=== PATIENT | male | born 1960 | race Caucasian/White ===

== ENCOUNTER 2017-01-06 18:35 | Emergency (ER) | payer OTHER ==
[~2017-01-06] VITALS: Ht 182.9 cm; Wt 85.0 kg
[~2017-01-06 18:35] MED LIST: TRAZ100T4 PO; TRAZ50TA4 PO; VENL-39 PO; VENL75XR PO
[2017-01-06 19:44] VITALS: BP 115/78; PULSE 111; RESP 18; TEMP 97.8; O2SAT 97
[2017-01-06 20:25] LABS: AUTOMATED NEUTROPHIL # 10.4 TH/MM3 (1.8-7.7); BASOPHIL # 0.1 TH/MM3 (0-0.2); BASOPHIL % 0.8 % (0.0-2.0); EOSINOPHIL % 0.2 % (0.0-4.0); HEMATOCRIT 47.4 % (39.0-51.0); HEMO FLAGS DIFF FINAL; LYMPH % 14.1 % (9.0-44.0); LYMPHOCYTE # 1.9 TH/MM3 (1.0-4.8); MEAN CELL VOLUME 95.5 FL (80.0-100.0); MEAN CORPUSCULAR HGB CONC 33.5 % (32.0-36.0); MONO % 5.9 % (0.0-8.0); PLATELET COUNT 316 TH/MM3 (150-450); RED BLOOD COUNT 4.97 MIL/MM3 (4.50-5.90); WHITE BLOOD COUNT 13.1 TH/MM3 (4.0-11.0)
[2017-01-06 20:39] LABS: ALT (GPT) 56 U/L (12-78); ANION GAP 9 MEQ/L (5-15); AST (GOT) 51 U/L (15-37); BICARBONATE 25.1 MEQ/L (21.0-32.0); BLOOD UREA NITROGEN 12 MG/DL (7-18); CHLORIDE 107 MEQ/L (98-107); GLOMERULAR FILTRATION RATE 45 ML/MIN (>89); POTASSIUM 4.2 MEQ/L (3.5-5.1); SODIUM (NA) 141 MEQ/L (136-145)
[2017-01-06 20:42] LABS: ALKALINE PHOSPHATASE 55 U/L (45-117); TOTAL BILIRUBIN ADULT 0.6 MG/DL (0.2-1.0)
[2017-01-06 20:55] LABS: ACETAMINOPHEN LESS THAN 2.0 MCG/ML (10.0-30.0)
[2017-01-06 21:13] VITALS: BP 137/86; PULSE 86; RESP 18; TEMP 97.7; O2SAT 97
[2017-01-06 21:47] LABS: AMPHETAMINE, URINE NEG (NEG); BARBITURATES, URINE NEG (NEG); COCAINE, URINE POS (NEG)
--- NOTE | 2017-01-06 22:51 | PD ---
HPI Chief Complaint: Psychiatric Symptoms Time Seen by Provider: 22:49 Travel History International Travel<30 days: No Contact w/Intl Traveler<30days: No Traveled to known affect area: No History of Present Illness HPI 56-year-old male presents to the emergency department under Bhandari act for psychiatric evaluation. Patient states he has history of depression and alcoholism. He has not been taking his medication. He has been increasingly depressed with suicidal thoughts. Denies any active attempt or plan. Abrasion denies any acute medical needs. He has no other symptoms reported. PFSH Past Medical History Blood Disorders: No Bipolar Disorder: Yes Depression: Yes Cancer: No Cardiovascular Problems: No Diabetes: No Diminished Hearing: No Endocrine: No Gastrointestinal Disorders: No Genitourinary: No Headaches: Yes Immune Disorder: No Musculoskeletal: No Neurologic: No Psychiatric: Yes (Depression, Bipolar Disorder) Reproductive: No Respiratory: No Immunizations Current: Yes Pancreatitis: Yes Schizophrenia: Yes (pt with hx) Seizures: No Past Surgical History Eye Surgery: Yes Other Surgery: No Social History Alcohol Use: Yes (20 BEERS/DAY.. DRANK 8 BEERS TONIGHT) Tobacco Use: Yes (1 PACK PER DAY) Substance Use: Yes Allergies-Medications (Allergen,Severity, Reaction): Coded Allergies: Milk (Verified Adverse Reaction, Intermediate, NAUSEA AND VOMITING, ) Reported Meds & Prescriptions Reported Meds & Active Scripts Active Effexor-Xr (Venlafaxine HCl) 75 Mg Caper 75 Mg PO DAILY 30 Days Desyrel 100 Mg Tab (Trazodone Hcl) 100 Mg Tab 100 Mg PO HS 30 Days Reported Trazodone Hcl (Trazodone HCl) 50 Mg Tab 50 Mg PO HS Venlafaxine Hcl Er 75 Mg Tab (Venlafaxine HCl) 75 Mg Lisandra 75 Mg PO BID Review of Systems Except as stated in HPI: all other systems reviewed are Neg Physical Exam Narrative GENERAL: Well-nourished male patient in no acute distress SKIN: Focused skin assessment warm/dry. HEAD: Atraumatic. Normocephalic. EYES: Pupils equal and round. No scleral icterus. No injection or drainage. ENT: No nasal bleeding or discharge. Mucous membranes pink and moist. NECK: Trachea midline. No JVD. CARDIOVASCULAR: Regular rate and rhythm. No murmur appreciated. RESPIRATORY: No accessory muscle use. Clear to auscultation. Breath sounds equal bilaterally. GASTROINTESTINAL: Abdomen soft, non-tender, nondistended. Hepatic and splenic margins not palpable. MUSCULOSKELETAL: No obvious deformities. No clubbing. No cyanosis. No edema. NEUROLOGICAL: Awake and alert. No obvious cranial nerve deficits. Motor grossly within normal limits. Normal speech. Data Data Last Documented VS Vital Signs Date Time Temp Pulse Resp B/P Pulse Ox O2 Delivery O2 Flow Rate FiO2 01/06/17 21:13 97.7 86 18 137/86 97 Room Air Orders Complete Blood Count With Diff (01/06/17 19:23) Comprehensive Metabolic Panel (01/06/17 19:23) Psych Screen (01/06/17:23) Drug Screen, Random Urine (01/06/17:23) Alcohol (Ethanol) (01/06/17 19:23) Salicylates (Aspirin) (01/06/17 19:23) Tylenol (Acetaminophen) (01/06/17 19:23) Labs Laboratory Tests Test 01/06/17 01/06/17 19:45 21:00 White Blood Count 13.1 TH/MM3 Red Blood Count 4.97 MIL/MM3 Hemoglobin 15.9 GM/DL Hematocrit 47.4 % Mean Corpuscular Volume 95.5 FL Mean Corpuscular Hemoglobin 32.0 PG Mean Corpuscular Hemoglobin 33.5 % Concent Red Cell Distribution Width 15.0 % Platelet Count 316 TH/MM3 Mean Platelet Volume 8.8 FL Neutrophils (%) (Auto) 79.0 % Lymphocytes (%) (Auto) 14.1 % Monocytes (%) (Auto) 5.9 % Eosinophils (%) (Auto) 0.2 % Basophils (%) (Auto) 0.8 % Neutrophils # (Auto) 10.4 TH/MM3 Lymphocytes # (Auto) 1.9 TH/MM3 Monocytes # (Auto) 0.8 TH/MM3 Eosinophils # (Auto) 0.0 TH/MM3 Basophils # (Auto) 0.1 TH/MM3 CBC Comment DIFF FINAL Differential Comment Sodium Level 141 MEQ/L Potassium Level 4.2 MEQ/L Chloride Level 107 MEQ/L Carbon Dioxide Level 25.1 MEQ/L Anion Gap 9 MEQ/L Blood Urea Nitrogen 12 MG/DL Creatinine 1.60 MG/DL Estimat Glomerular Filtration 45 ML/MIN Rate Random Glucose 102 MG/DL Calcium Level 9.5 MG/DL Total Bilirubin 0.6 MG/DL Aspartate Amino Transf 51 U/L (AST/SGOT) Alanine Aminotransferase 56 U/L (ALT/SGPT) Alkaline Phosphatase 55 U/L Total Protein 8.2 GM/DL Albumin 4.4 GM/DL Salicylates Level LESS THAN 1.7 MG/DL Acetaminophen Level LESS THAN 2.0 MCG/ML Ethyl Alcohol Level 145 MG/DL Urine Opiates Screen NEG Urine Barbiturates Screen NEG Urine Amphetamines Screen NEG Urine Benzodiazepines Screen NEG Urine Cocaine Screen POS Urine Cannabinoids Screen NEG MDM Medical Decision Making Medical Screen Exam Complete: Yes Emergency Medical Condition: Yes Medical Record Reviewed: Yes Differential Diagnosis Mood disorder versus personality disorder versus adjustment reaction disorder Narrative Course 56-year-old male presents to the emergency department under Bhandari act for psychiatric evaluation. Patient does report suicidal thoughts and increased depression. CBC with leukocytosis of 14.1, otherwise without acute concern. CMP is without acute concern however the patient does have renal insufficiency. Toxicology is positive for cocaine. EtOH is 145. Patient is medically cleared to undergo psychiatric screening for further evaluation and disposition. Mental health screening discussed with the patient. Psychiatric screen ordered. Diagnosis Primary Impression: Bipolar disorder with depression Additional Impression: Alcohol intoxication Qualified Code: F10.929 - Alcohol intoxication, with unspecified complication Condition: Stable Gill Melgar Jan 06, 2017 22:51
[2017-01-07 01:47] VITALS: BP 119/72; PULSE 88; RESP 18; O2SAT 97
[2017-01-07 05:55] VITALS: BP 132/61; PULSE 81; RESP 18; O2SAT 98
[2017-01-07] MEDS ORDERED: ACETAMINOPHEN 325 MG TAB PO ONE (08:15)
--- NOTE | 2017-01-07 11:42 | PD ---
History of Present Illness Chief Complaint: Psychiatric Symptoms Time Seen by Provider: 11:24 Travel History International Travel<30 Days: No Contact w/Intl Traveler<30days: No Known affected area: No Legal Status Legal Status: Bhandari Act Bhandari Act Signed By: Kirk Cortes History of Present Illness: History of Present Illness HPI 56-year-old male with history of bipolar disorder as well as alcohol dependence and substance use disorder who presents to the emergency department under Bhandari act initiated by [facility]. As per BA report he reported to the police that he has been diagnosed with depression and that he is off his medications and having trouble with his thoughts. He advised them that he was thinking of jumping in front of a car or hanging himself in the [place]. He did not make any attempts at harming himself. The patient was monitored in secure environment and he did not present any behavioral concerns and no suicidality. Review of EMR. He has had several ed visits . Last visit was in Jun 2015 and he was transferred to [facility]. Current toxicology is positive for cocaine. BAL is 145. The patient is seen with nurse Toni. he is asleep but awakens easily with verbal prompt. He is clinically sober. Speech is clear and logical. He states that he is seeking help for his depression and that " I want to get back on my medication". He last took psychiatric medication " about 9 months ago" and tells me that he was living in [place] and did not know where to go for treatment. He moved back to [facility] yesterday. There is no indication that he is responding to internal stimuli. No evidence of any garcía or hypomania. He does not report any symptom of depression. No suicidal or homicidal ideation . PFSH Past Medical History Blood Disorders: No Bipolar Disorder: Yes Depression: Yes Cancer: No Cardiovascular Problems: No Diabetes: No Diminished Hearing: No Endocrine: No Gastrointestinal Disorders: No Genitourinary: No Headaches: Yes Immune Disorder: No Musculoskeletal: No Neurologic: No Psychiatric: Yes (Depression, Bipolar Disorder) Reproductive: No Respiratory: No Immunizations Current: Yes Pancreatitis: Yes Schizophrenia: Yes (pt with hx) Seizures: No Past Surgical History Eye Surgery: Yes Other Surgery: No Psychiatric History Psychiatric History Hx Psychiatric Treatment: PATIENT WAS LAST ADMITTED TO [facility] 05/31/15 TO 06/05/15 FOR BIPOLAR DISORDER. 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 Moved to area yesterday. Currently homeless. Hx Alcohol Use: Yes (20 BEERS/DAY.. DRANK 8 BEERS TONIGHT) Hx Tobacco Use: Yes (1 PACK PER DAY) Hx Substance Use: Yes Substance Use Type: Alcohol, Cocaine Other Substances Used: Pt reports regular ETOH but denies using any ellicit drugs Hx of Substance Use Treatment: Yes Family Psychiatric History Negative Allergies-Medications (Allergen,Severity, Reaction): Coded Allergies: Milk (Verified Adverse Reaction, Intermediate, NAUSEA AND VOMITING, ) Reported Meds & Prescriptions Reported Meds & Active Scripts Active Effexor-Xr (Venlafaxine HCl) 75 Mg Caper 75 Mg PO DAILY 30 Days Desyrel 100 Mg Tab (Trazodone Hcl) 100 Mg Tab 100 Mg PO HS 30 Days Reported Trazodone Hcl (Trazodone HCl) 50 Mg Tab 50 Mg PO HS Venlafaxine Hcl Er 75 Mg Tab (Venlafaxine HCl) 75 Mg Lisandra 75 Mg PO BID Review of Systems Except as stated in HPI: all other systems reviewed are Neg Exam Alert: Yes [place]: Person (ox4) Mood: Calm Affect: Appropriate Speech: Clear, Logical Eye Contact: Indirect Memory Intact: Comment (no impairment) Hallucinations: Other (negative) Delusions: No Suicidal: Ideation (Negative) Homicidal: Ideation (Negative) Insight/Judgement Poor. Poor MDM Medical Decision Making Medical Record Reviewed: Yes Assessment/Plan 56 year old male with history of bipolar disorder as well as substance use disorder. His drug of choice is alcohol and cocaine. He came under a BA after he reported to police that he was having suicidal thoughts. The patient was monitored and he presented no suicidality and no significant psychiatric symptoms. This morning he is clinically sober. He is requesting assistance in getting back into psychiatric treatment. At this time he does not meet criteria for BA or for inpatietn treatment. I have recommended he follow up with [facility] for outpatient treatment. Lift BA Orders Complete Blood Count With Diff (01/06/17 19:23) Comprehensive Metabolic Panel (01/06/17 19:23) Psych Screen (01/06/17 19:23) Drug Screen, Random Urine (01/06/17 19:23) Alcohol (Ethanol) (01/06/17 19:23) Salicylates (Aspirin) (01/06/17 19:23) Tylenol (Acetaminophen) (01/06/17 19:23) Diet Regular Basic (01/07/17 Breakfast) Acetaminophen (Tylenol) (01/07/17 08:15) Diet Regular Basic (01/07/17 Lunch) Results Vital Signs Date Time Temp Pulse Resp B/P Pulse Ox O2 Delivery O2 Flow Rate FiO2 01/07/17 05:55 81 18 132/61 98 Room Air 01/07/17 01:47 88 18 119/72 97 Room Air 01/06/17 21:13 97.7 86 18 137/86 97 Room Air 01/06/17 19:44 97.8 111 18 115/78 97 Room Air Laboratory Tests Test 01/06/17 01/06/17 19:45 21:00 White Blood Count 13.1 Red Blood Count 4.97 Hemoglobin 15.9 Hematocrit 47.4 Mean Corpuscular Volume 95.5 Mean Corpuscular Hemoglobin 32.0 Mean Corpuscular Hemoglobin 33.5 Concent Red Cell Distribution Width 15.0 Platelet Count 316 Mean Platelet Volume 8.8 Neutrophils (%) (Auto) 79.0 Lymphocytes (%) (Auto) 14.1 Monocytes (%) (Auto) 5.9 Eosinophils (%) (Auto) 0.2 Basophils (%) (Auto) 0.8 Neutrophils # (Auto) 10.4 Lymphocytes # (Auto) 1.9 Monocytes # (Auto) 0.8 Eosinophils # (Auto) 0.0 Basophils # (Auto) 0.1 CBC Comment DIFF FINAL Differential Comment Sodium Level 141 Potassium Level 4.2 Chloride Level 107 Carbon Dioxide Level 25.1 Anion Gap 9 Blood Urea Nitrogen 12 Creatinine 1.60 Estimat Glomerular Filtration 45 Rate Random Glucose 102 Calcium Level 9.5 Total Bilirubin 0.6 Aspartate Amino Transf 51 (AST/SGOT) Alanine Aminotransferase 56 (ALT/SGPT) Alkaline Phosphatase 55 Total Protein 8.2 Albumin 4.4 Salicylates Level LESS THAN 1.7 Acetaminophen Level LESS THAN 2.0 Ethyl Alcohol Level 145 Urine Opiates Screen NEG Urine Barbiturates Screen NEG Urine Amphetamines Screen NEG Urine Benzodiazepines Screen NEG Urine Cocaine Screen POS Urine Cannabinoids Screen NEG Diagnosis Primary Impression: Alcohol intoxication Additional Impressions: Bipolar disorder with depression Cocaine abuse Substance induced mood disorder Psychiatrically Cleared: Yes Med/ Other Pt Specific Info: No Meds Exist/No RX given Disposition: 01 DISCHARGE HOME Condition: Stable Problem Qualifiers Primary Impression: Alcohol intoxication Qualified Code: F10.929 - Alcohol intoxication, with unspecified complication Yadi Wilkinson [facility] Jan 07, 2017 11:42
[2017-01-07 11:44] VITALS: BP 132/61; PULSE 81; RESP 18; O2SAT 98
== END 2017-01-07 13:56 | disposition home or self-care (01) ==
LOC: NEPJ 18:35
DX: F10.129 Alcohol abuse with intoxication, unspecified (principal); F31.9 Bipolar disorder, unspecified; F14.10 Cocaine abuse, uncomplicated; K85.90 Acute pancreatitis without necrosis or infection, unspecified; F20.9 Schizophrenia, unspecified; F17.200 Nicotine dependence, unspecified, uncomplicated; Z79.899 Other long term (current) drug therapy
CPT/HCPCS: 80053; 80307; 85025; 99284

== ENCOUNTER 2017-01-14 16:57 | Emergency (ER) | payer SELFPAY ==
[~2017-01-14] VITALS: Ht 185.4 cm; Wt 86.0 kg
[2017-01-14 17:14] VITALS: BP 112/56; PULSE 76; RESP 16; O2SAT 100
[2017-01-14 19:05] LABS: AUTOMATED NEUTROPHIL # 8.3 TH/MM3 (1.8-7.7); BASOPHIL # 0.1 TH/MM3 (0-0.2); BASOPHIL % 0.7 % (0.0-2.0); EOSINOPHIL # 0.1 TH/MM3 (0-0.4); EOSINOPHIL % 0.8 % (0.0-4.0); HEMATOCRIT 48.6 % (39.0-51.0); HEMO FLAGS DIFF FINAL; LYMPH % 25.2 % (9.0-44.0); LYMPHOCYTE # 3.1 TH/MM3 (1.0-4.8); MEAN CELL VOLUME 96.5 FL (80.0-100.0); MEAN CORPUSCULAR HEMOGLOBIN 32.9 PG (27.0-34.0); MEAN CORPUSCULAR HGB CONC 34.1 % (32.0-36.0); MONO % 6.7 % (0.0-8.0); NEUT % 66.6 % (16.0-70.0); PLATELET COUNT 287 TH/MM3 (150-450); RED BLOOD COUNT 5.04 MIL/MM3 (4.50-5.90); RED CELL DISTRIBUTION WIDTH 14.6 % (11.6-17.2); WHITE BLOOD COUNT 12.4 TH/MM3 (4.0-11.0)
[2017-01-14 19:14] LABS: AMPHETAMINE, URINE NEG (NEG)
[2017-01-14 19:15] LABS: BARBITURATES, URINE NEG (NEG); COCAINE, URINE NEG (NEG)
[2017-01-14 19:22] LABS: ANION GAP 10 MEQ/L (5-15); AST (GOT) 49 U/L (15-37); BICARBONATE 26.9 MEQ/L (21.0-32.0); BLOOD UREA NITROGEN 14 MG/DL (7-18); CHLORIDE 101 MEQ/L (98-107); GLOMERULAR FILTRATION RATE 47 ML/MIN (>89); POTASSIUM 4.7 MEQ/L (3.5-5.1); SODIUM (NA) 138 MEQ/L (136-145)
[2017-01-14 19:23] LABS: ALT (GPT) 66 U/L (12-78)
[2017-01-14 19:26] LABS: ALKALINE PHOSPHATASE 69 U/L (45-117); TOTAL BILIRUBIN ADULT 0.7 MG/DL (0.2-1.0)
[2017-01-14] MEDS ORDERED: FLUMAZENIL 0.5 MG/5 ML VIAL IV PUSH PRN (20:00)
[2017-01-14] MEDS ORDERED: ONDANSETRON ODT 4 MG TAB PO PRN (20:00)
[2017-01-14] MEDS ORDERED: LORazepam 2 MG/ML VIAL IV PUSH PRN ×4 (20:00)
[2017-01-14] MEDS ORDERED: ACETAMINOPHEN 325 MG TAB PO PRN (20:00)
[2017-01-14] MEDS ORDERED: LORazepam 1 MG TAB PO PRN (20:00)
[2017-01-14] MEDS ORDERED: LORazepam 2 MG TAB PO PRN (20:00)
--- NOTE | 2017-01-14 20:14 | PD ---
HPI Chief Complaint: Psychiatric Symptoms Time Seen by Provider: 20:08 Travel History International Travel<30 days: No Contact w/Intl Traveler<30days: No Traveled to known affect area: No History of Present Illness HPI 56-year-old male that presents to the ED for evaluation of Bhandari act. Patient reports having a history of chronic depression and bipolar disorder. Per patient he is to the medications and he states that he needs to go back on them. Per patient he cut himself on the left wrist to help deal with his symptoms. Per patient he does feel suicidal. He denies any actual plan. No chest pain or shortness of breath. He is also an alcoholic. He denies any drug abuse. No other medical issues. Patient comes here under Bhandari act. Allergy to milk. Symptoms have been ongoing for a couple of weeks worsening for the past couple days. PFSH Past Medical History Blood Disorders: No Bipolar Disorder: Yes Depression: Yes Cancer: No Cardiovascular Problems: No Diabetes: No Diminished Hearing: No Endocrine: No Gastrointestinal Disorders: No Genitourinary: No Headaches: Yes Immune Disorder: No Musculoskeletal: No Neurologic: No Psychiatric: Yes (Depression, Bipolar Disorder) Reproductive: No Respiratory: No Immunizations Current: Yes Pancreatitis: Yes Schizophrenia: Yes (pt with hx) Seizures: No Past Surgical History Eye Surgery: Yes Other Surgery: No Social History Alcohol Use: Yes (20 BEERS/DAY.. DRANK 8 BEERS TONIGHT) Tobacco Use: Yes (1 PACK PER DAY) Substance Use: Yes Allergies-Medications (Allergen,Severity, Reaction): Coded Allergies: Milk (Verified Adverse Reaction, Intermediate, NAUSEA AND VOMITING, ) Reported Meds & Prescriptions Reported Meds & Active Scripts Active Effexor-Xr (Venlafaxine HCl) 75 Mg Caper 75 Mg PO DAILY 30 Days Desyrel 100 Mg Tab (Trazodone Hcl) 100 Mg Tab 100 Mg PO HS 30 Days Reported Trazodone Hcl (Trazodone HCl) 50 Mg Tab 50 Mg PO HS Venlafaxine Hcl Er 75 Mg Tab (Venlafaxine HCl) 75 Mg Lisandra 75 Mg PO BID Review of Systems Except as stated in HPI: all other systems reviewed are Neg Physical Exam Narrative GENERAL: SKIN: Warm and dry. Patient has multiple superficial cuts to the ventral aspect of the left wrist. HEAD: Atraumatic. Normocephalic. EYES: Pupils equal and round. No scleral icterus. No injection or drainage. ENT: No nasal bleeding or discharge. Mucous membranes pink and moist. Tongue is midline. No uvula deviation. NECK: Trachea midline. No JVD. CARDIOVASCULAR: Regular rate and rhythm. RESPIRATORY: No accessory muscle use. Clear to auscultation. Breath sounds equal bilaterally. GASTROINTESTINAL: Abdomen soft, non-tender, nondistended. Hepatic and splenic margins not palpable. MUSCULOSKELETAL: Extremities without clubbing, cyanosis, or edema. No obvious deformities. NEUROLOGICAL: Awake and alert. No obvious cranial nerve deficits. Motor grossly within normal limits. Five out of 5 muscle strength in the arms and legs. Normal speech. PSYCHIATRIC: Appropriate mood and affect; insight and judgment normal. Data Data Last Documented VS Vital Signs Date Time Temp Pulse Resp B/P Pulse Ox O2 Delivery O2 Flow Rate FiO2 01/14/17 17:14 76 16 112/56 100 Orders Complete Blood Count With Diff (01/14/17 18:27) Comprehensive Metabolic Panel (01/14/17 18:27) Psych Screen (01/14/17 18:27) Drug Screen, Random Urine (01/14/17 18:27) Alcohol (Ethanol) (01/14/17 18:27) Alcohol Withdrawal Asmt-Ciwa ONCE (01/14/17 19:55) Acetaminophen (Tylenol) (01/14/17 20:00) Flumazenil Inj (Romazicon Inj) (01/14/17 20:00) Lorazepam (Ativan) (01/14/17 20:00) Lorazepam Inj (Ativan Inj) (01/14/17 20:00) Lorazepam (Ativan) (01/14/17 20:00) Lorazepam Inj (Ativan Inj) (01/14/17 20:00) Lorazepam Inj (Ativan Inj) (01/14/17 20:00) Lorazepam Inj (Ativan Inj) (01/14/17 20:00) Ondansetron Odt (Zofran Odt) (01/14/17 20:00) Labs Laboratory Tests Test 01/14/17 01/14/17 18:00 18:32 Urine Opiates Screen NEG Urine Barbiturates Screen NEG Urine Amphetamines Screen NEG Urine Benzodiazepines Screen NEG Urine Cocaine Screen NEG Urine Cannabinoids Screen NEG White Blood Count 12.4 TH/MM3 Red Blood Count 5.04 MIL/MM3 Hemoglobin 16.6 GM/DL Hematocrit 48.6 % Mean Corpuscular Volume 96.5 FL Mean Corpuscular Hemoglobin 32.9 PG Mean Corpuscular Hemoglobin 34.1 % Concent Red Cell Distribution Width 14.6 % Platelet Count 287 TH/MM3 Mean Platelet Volume 8.5 FL Neutrophils (%) (Auto) 66.6 % Lymphocytes (%) (Auto) 25.2 % Monocytes (%) (Auto) 6.7 % Eosinophils (%) (Auto) 0.8 % Basophils (%) (Auto) 0.7 % Neutrophils # (Auto) 8.3 TH/MM3 Lymphocytes # (Auto) 3.1 TH/MM3 Monocytes # (Auto) 0.8 TH/MM3 Eosinophils # (Auto) 0.1 TH/MM3 Basophils # (Auto) 0.1 TH/MM3 CBC Comment DIFF FINAL Differential Comment Sodium Level 138 MEQ/L Potassium Level 4.7 MEQ/L Chloride Level 101 MEQ/L Carbon Dioxide Level 26.9 MEQ/L Anion Gap 10 MEQ/L Blood Urea Nitrogen 14 MG/DL Creatinine 1.54 MG/DL Estimat Glomerular Filtration 47 ML/MIN Rate Random Glucose 127 MG/DL Calcium Level 9.9 MG/DL Total Bilirubin 0.7 MG/DL Aspartate Amino Transf 49 U/L (AST/SGOT) Alanine Aminotransferase 66 U/L (ALT/SGPT) Alkaline Phosphatase 69 U/L Total Protein 8.6 GM/DL Albumin 4.5 GM/DL Ethyl Alcohol Level 144 MG/DL MDM Medical Decision Making Medical Screen Exam Complete: Yes Emergency Medical Condition: Yes Medical Record Reviewed: Yes Interpretation(s) CBC & BMP Diagram 01/14/17 18:32 LFTS WNL tox positive for alochol Differential Diagnosis Depression versus suicidal ideation versus anxiety versus adjustment disorder versus mood disorder versus bipolar disorder versus schizophrenia versus paranoid disorder versus psychosis versus substance abuse versus alcohol abuse versus alcohol induced psychosis versus homicidality addition versus cutting versus personality disorder Narrative Course 56-year-old male that presents to the ED for evaluation of psych. Patient was properly examined and was found to have signs and symptoms consistent psychiatric illness. No sign of acute medical distress. Labs were drawn. Patient positive for alcohol. Sample was ordered. Patient was medically cleared. Wound care will be done by ED nurse. Mental health screening was discussed with the patient. Diagnosis Primary Impression: Bipolar disorder with depression Prabhu Pedroza Jan 14, 2017 20:13
[2017-01-14 20:57] VITALS: BP 122/67; PULSE 86; RESP 19; O2SAT 92
[2017-01-14 22:27] VITALS: BP 101/58; PULSE 88; RESP 16; O2SAT 98
[2017-01-15 02:11] VITALS: BP 129/78; PULSE 93; RESP 18; O2SAT 91
[2017-01-15 06:28] VITALS: BP 142/75; PULSE 79; RESP 18; O2SAT 94
--- NOTE | 2017-01-15 10:16 | PD ---
History of Present Illness Chief Complaint: Psychiatric Symptoms Time Seen by Provider: 10:05 Travel History International Travel<30 Days: No Contact w/Intl Traveler<30days: No Known affected area: No Legal Status Legal Status: Bhandari Act Bhandari Act Signed By: Kirk Bhandari Act Comment: 2016 @ 1640 History of Present Illness: History of Present Illness HPI 56-year-old male with history of alcohol dependence, bipolar disorder as well as a record hx of schizoaffective disorder as well as schizophrenia who that presents to the ED under a BA Bhandari act. The BA report indicates that the police were called after several people witnessed the patient cutting his wrist with a piece of glass. Patient intoxicated at the time and BAL on arrival to Ed was 144. The patient was monitored in secure environment and was allowed to sober up clinically. He presented no suicidality and no behavioral concerns. He is seen this morning and he is clinically sober. His speech is clear and he has no other visible sign of intoxication. He tells me that he was out drinking with some friends when things got out of control. he is denying any suicidal or homicidal ideation, intent or plan. he does tell me that he was taking Prozac but that he feels is not working for him. He prefers to take Wellbutrin which has helped in the past. He does not have a follow up appointment at [facility]. In terms of his drinking he states " I don't want to stop right now". There is no psychosis, no garcía at this time. PFSH Past Medical History Blood Disorders: No Bipolar Disorder: Yes Depression: Yes Cancer: No Cardiovascular Problems: No Diabetes: No Patient Takes Glucophage: No Diminished Hearing: No Endocrine: No Gastrointestinal Disorders: No Genitourinary: No Headaches: Yes Immune Disorder: No Musculoskeletal: No Neurologic: No Psychiatric: Yes (Depression, Bipolar Disorder) Reproductive: No Respiratory: No Immunizations Current: Yes Pancreatitis: Yes Schizophrenia: Yes (pt with hx) Seizures: No Past Surgical History Eye Surgery: Yes Other Surgery: No Psychiatric History Psychiatric History Hx Psychiatric Treatment: BIPOLAR DISORDER. last hosp in 2014. Has outpatietn care at [facility] History of Inpatient Treatment: Yes Guns or firearms in home: No Social History Single male. 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 Hx Alcohol Use: Yes (20 BEERS/DAY) Hx Tobacco Use: Yes (1 PACK PER DAY) Hx Substance Use: Yes Substance Use Type: Alcohol, Cocaine Other Substances Used: Pt reports regular ETOH but denies using any ellicit drugs Hx of Substance Use Treatment: Yes Family Psychiatric History Negative Allergies-Medications (Allergen,Severity, Reaction): Coded Allergies: Milk (Verified Adverse Reaction, Intermediate, NAUSEA AND VOMITING, ) Reported Meds & Prescriptions Reported Meds & Active Scripts Active Effexor-Xr (Venlafaxine HCl) 75 Mg Caper 75 Mg PO DAILY 30 Days Desyrel 100 Mg Tab (Trazodone Hcl) 100 Mg Tab 100 Mg PO HS 30 Days Reported Trazodone Hcl (Trazodone HCl) 50 Mg Tab 50 Mg PO HS Venlafaxine Hcl Er 75 Mg Tab (Venlafaxine HCl) 75 Mg Lisandra 75 Mg PO BID Review of Systems Except as stated in HPI: all other systems reviewed are Neg Exam Alert: Yes [place]: Person (ox4) Mood: Calm Affect: Appropriate, Euthymic Speech: Clear, Logical Eye Contact: Indirect Memory Intact: Comment (No impairmetn) Hallucinations: Other (negative) Delusions: No Suicidal: Ideation (denies any) Homicidal: Ideation (denies) Insight/Judgement Fair,not impaired. [facility] Medical Decision Making Medical Record Reviewed: Yes Assessment/Plan 56 year old male with hx of alcohol abuse as well as bipolar disorder who in context of alcohol intoxication cut his wrist. patient at this time is clinically sober and he denies any suicidal or homicidal ideation, intent or plan. Lift BA. Recommend sobriety which he tells me he is not interested at this time. Follow up with [facility]. Orders Complete Blood Count With Diff (01/14/17 18:27) Comprehensive Metabolic Panel (01/14/17 18:27) Psych Screen (01/14/17 18:27) Drug Screen, Random Urine (01/14/17 18:27) Alcohol (Ethanol) (01/14/17 18:27) Alcohol Withdrawal Asmt-Ciwa ONCE (01/14/17 19:55) Acetaminophen (Tylenol) (01/14/17 20:00) Flumazenil Inj (Romazicon Inj) (01/14/17 20:00) Lorazepam (Ativan) (01/14/17 20:00) Lorazepam Inj (Ativan Inj) (01/14/17 20:00) Lorazepam (Ativan) (01/14/17 20:00) Lorazepam Inj (Ativan Inj) (01/14/17 20:00) Lorazepam Inj (Ativan Inj) (01/14/17 20:00) Lorazepam Inj (Ativan Inj) (01/14/17 20:00) Ondansetron Odt (Zofran Odt) (01/14/17 20:00) Diet Regular Basic (01/15/17 Breakfast) Results Vital Signs Date Time Temp Pulse Resp B/P Pulse Ox O2 Delivery O2 Flow Rate FiO2 01/15/17 06:28 79 18 142/75 94 Room Air 01/15/17 02:11 93 18 129/78 91 Room Air 01/14/17 22:27 88 16 101/58 98 Room Air 01/14/17 20:57 86 19 122/67 92 Room Air 01/14/17 17:14 76 16 112/56 100 Laboratory Tests Test 01/14/17 01/14/17 18:00 18:32 Urine Opiates Screen NEG Urine Barbiturates Screen NEG Urine Amphetamines Screen NEG Urine Benzodiazepines Screen NEG Urine Cocaine Screen NEG Urine Cannabinoids Screen NEG White Blood Count 12.4 Red Blood Count 5.04 Hemoglobin 16.6 Hematocrit 48.6 Mean Corpuscular Volume 96.5 Mean Corpuscular Hemoglobin 32.9 Mean Corpuscular Hemoglobin 34.1 Concent Red Cell Distribution Width 14.6 Platelet Count 287 Mean Platelet Volume 8.5 Neutrophils (%) (Auto) 66.6 Lymphocytes (%) (Auto) 25.2 Monocytes (%) (Auto) 6.7 Eosinophils (%) (Auto) 0.8 Basophils (%) (Auto) 0.7 Neutrophils # (Auto) 8.3 Lymphocytes # (Auto) 3.1 Monocytes # (Auto) 0.8 Eosinophils # (Auto) 0.1 Basophils # (Auto) 0.1 CBC Comment DIFF FINAL Differential Comment Sodium Level 138 Potassium Level 4.7 Chloride Level 101 Carbon Dioxide Level 26.9 Anion Gap 10 Blood Urea Nitrogen 14 Creatinine 1.54 Estimat Glomerular Filtration 47 Rate Random Glucose 127 Calcium Level 9.9 Total Bilirubin 0.7 Aspartate Amino Transf 49 (AST/SGOT) Alanine Aminotransferase 66 (ALT/SGPT) Alkaline Phosphatase 69 Total Protein 8.6 Albumin 4.5 Ethyl Alcohol Level 144 Diagnosis Primary Impression: Alcohol dependence with intoxication Additional Impression: Substance induced mood disorder Psychiatrically Cleared: Yes Referrals: [facility] (Out patient) call for appointment Departure Forms: Tests/Procedures Patient Instructions: General Instructions, Alcohol Dependence (ED) Disposition: 01 DISCHARGE HOME Condition: Stable Problem Qualifiers Primary Impression: Alcohol dependence with intoxication Yadi Wilkinson [facility] Jan 15, 2017 10:16
[2017-01-15] MEDS ORDERED: SERO200T PO (23:34)
== END 2017-01-15 11:58 | disposition home or self-care (01) ==
LOC: NEDAMB 16:57 → NEPJ 01-15 11:58
DX: F10.229 Alcohol dependence with intoxication, unspecified (principal); F19.94 Other psychoactive substance use, unspecified with psychoactive substance-induced mood disorder; F31.9 Bipolar disorder, unspecified; F25.9 Schizoaffective disorder, unspecified; F17.200 Nicotine dependence, unspecified, uncomplicated; K85.90 Acute pancreatitis without necrosis or infection, unspecified; Z79.899 Other long term (current) drug therapy
CPT/HCPCS: 80053; 80307; 85025; 99284

== ENCOUNTER 2017-01-15 22:53 | Emergency (ER) | payer OTHER ==
[2017-01-15 23:14] VITALS: BP 130/72; PULSE 75; RESP 16; TEMP 98.1; O2SAT 96
--- NOTE | 2017-01-15 23:32 | PD ---
HPI Chief Complaint: Suicide Ideation/Attempt Time Seen by Provider: 23:29 Travel History International Travel<30 days: No Contact w/Intl Traveler<30days: No History of Present Illness HPI Patient comes under Bhandari act by police for suicidal ideations. Patient denies any homicidal ideations but reports he's been cutting himself. Patient states he feels though his medication that he is on currently is not keeping his mind right hand that is actually making his symptoms worse. Denies anything making his symptoms better. Patient states he's been on Seroquel in the past which seemed to calm him down. Patient denies any medical concerns at this time and is just wanting to take a shower. Denies any chest pain, fevers, cough or shortness breath, nausea, vomiting, abdominal pain, or loss change in bowel or bladder. PFSH Past Medical History Blood Disorders: No Bipolar Disorder: Yes Depression: Yes Cancer: No Cardiovascular Problems: No Diabetes: No Diminished Hearing: No Endocrine: No Gastrointestinal Disorders: No Genitourinary: No Headaches: Yes Immune Disorder: No Musculoskeletal: No Neurologic: No Psychiatric: Yes (Depression, Bipolar Disorder) Reproductive: No Respiratory: No Immunizations Current: Yes Pancreatitis: Yes Schizophrenia: Yes (pt with hx) Seizures: No Past Surgical History Eye Surgery: Yes Other Surgery: No Social History Alcohol Use: Yes (20 BEERS/DAY) Tobacco Use: Yes (1 PACK PER DAY) Substance Use: Yes Allergies-Medications (Allergen,Severity, Reaction): Coded Allergies: Milk (Verified Adverse Reaction, Intermediate, NAUSEA AND VOMITING, ) Reported Meds & Prescriptions Reported Meds & Active Scripts Active Effexor-Xr (Venlafaxine HCl) 75 Mg Caper 75 Mg PO DAILY 30 Days Desyrel 100 Mg Tab (Trazodone Hcl) 100 Mg Tab 100 Mg PO HS 30 Days Reported Trazodone Hcl (Trazodone HCl) 50 Mg Tab 50 Mg PO HS Venlafaxine Hcl Er 75 Mg Tab (Venlafaxine HCl) 75 Mg Lisandra 75 Mg PO BID Review of Systems Except as stated in HPI: all other systems reviewed are Neg Physical Exam Narrative GENERAL: Well-developed, well nourished, in no acute distress, and non-ill appearing. SKIN: Focused skin assessment warm and dry. Mild peeling sunburn noted on the torso. HEAD: Atraumatic. Normocephalic. EYES: Pupils equal and round. EOMI. No scleral icterus. No injection or drainage. ENT: No nasal bleeding or discharge. Mucous membranes pink and moist. NECK: Trachea midline. Supple. No nuclear rigidity. CARDIOVASCULAR: Regular rate and rhythm. No murmur appreciated. RESPIRATORY: No accessory muscle use. No respiratory distress. Clear to auscultation. Breath sounds equal bilaterally. MUSCULOSKELETAL: No obvious deformities. No clubbing. No cyanosis. No edema. Full range of motion. NEUROLOGICAL: Awake and alert. No obvious cranial nerve deficits. Motor grossly within normal limits. Normal speech. PSYCHIATRIC: Appropriate mood and affect; insight and judgment normal. Data Data Last Documented VS Vital Signs Date Time Temp Pulse Resp B/P Pulse Ox O2 Delivery O2 Flow Rate FiO2 01/15/17 23:14 98.1 75 16 130/72 96 Room Air MDM Medical Decision Making Medical Screen Exam Complete: Yes Emergency Medical Condition: Yes Differential Diagnosis Homicidal, suicidal, bipolar disorder, substance abuse, other Narrative Course Patient was seen and examined. Labs were reviewed from yesterday and I see no need to repeat them today. Patient medically cleared for further treatment and evaluation by psych. Final disposition per psych. Diagnosis Primary Impression: Medical clearance for psychiatric admission Condition: Stable Bakari Sommers Jan 15, 2017 23:32
[2017-01-15] MEDS ORDERED: SERO200T PO (23:34)
[2017-01-16 04:25] VITALS: BP 108/77; PULSE 84; RESP 18; TEMP 97.8; O2SAT 97
[2017-01-16 06:08] VITALS: BP 103/62; PULSE 84; RESP 16
[2017-01-16] MEDS ORDERED: ACETAMINOPHEN 500 MG CPLT PO ONE (09:15)
== END 2017-01-16 15:13 ==
LOC: NEPD 22:53 → NEPJ 01-16 15:13
DX: K85.90 Acute pancreatitis without necrosis or infection, unspecified (principal); F20.9 Schizophrenia, unspecified; F31.9 Bipolar disorder, unspecified; F17.200 Nicotine dependence, unspecified, uncomplicated; Z79.899 Other long term (current) drug therapy
CPT/HCPCS: 99285